=== PATIENT | female | born 1945 | race Caucasian/White ===

== ENCOUNTER 2021-07-26 14:46 | Emergency (ER) | payer MEDICARE, OTHER ==
[~2021-07-26] VITALS: Ht 154.9 cm; Wt 83.9 kg
[2021-07-26] MEDS ORDERED: FUROSEMIDE 20 M20 MG PO (15:05)
[2021-07-26] MEDS ORDERED: VAZALORE325 MG PO (15:05)
[2021-07-26] MEDS ORDERED: SYNTHROID75 MC1 PO (15:06)
[2021-07-26] MEDS ORDERED: LIPITOR10 MG PO (15:06)
[2021-07-26] MEDS ORDERED: LISINOPRIL10 MG PO (15:06)
[2021-07-26] MEDS ORDERED: JARDIANCE10 MG PO (15:06)
[2021-07-26] MEDS ORDERED: LEXAPRO 10 MG T10 M2 PO (15:06)
[2021-07-26] MEDS ORDERED: ABILIFY10 MG PO (15:06)
[2021-07-26] MEDS ORDERED: NEURONTIN100 MG PO (15:07)
[2021-07-26] MEDS ORDERED: VESICARE10 M1 PO (15:07)
[2021-07-26 16:13] VITALS: BP 122/72
== END 2021-07-26 16:14 | disposition home or self-care (01) ==
LOC: M.ERS 14:46
DX: S01.01XA Laceration without foreign body of scalp, initial encounter (principal); E11.9 Type 2 diabetes mellitus without complications; Z90.711 Acquired absence of uterus with remaining cervical stump; Z90.49 Acquired absence of other specified parts of digestive tract; Z98.890 Other specified postprocedural states; Z79.82 Long term (current) use of aspirin; Z79.899 Other long term (current) drug therapy; W01.0XXA Fall on same level from slipping, tripping and stumbling without subsequent striking against object, initial encounter; Y93.E8 Activity, other personal hygiene; Y92.091 Bathroom in other non-institutional residence as the place of occurrence of the external cause; Y99.8 Other external cause status